=== PATIENT | female | born 1965 | race Caucasian/White ===

== ENCOUNTER 2024-05-27 07:29 | Emergency (ER) | payer SELFPAY ==
[2024-05-27 07:43] VITALS: BP 193/143; PULSE 87; TEMP 37; O2SAT 98; BMI 30.9
--- NOTE | 2024-05-27 07:44 | CTR_ITS ---
PROCEDURE INFORMATION: Exam: CT Abdomen And Pelvis With Contrast Exam date and time: 05/27/2024 8:07 AM Age: 58 years old Clinical indication: Vomiting TECHNIQUE: Imaging protocol: Computed tomography of the abdomen and pelvis with contrast. Radiation optimization: All CT scans at this facility use at least one of these dose optimization techniques: automated exposure control; mA and/or kV adjustment per patient size (includes targeted exams where dose is matched to clinical indication); or iterative reconstruction. Contrast material: OMNI 350; Contrast volume: 100 ml; Contrast route: INTRAVENOUS (IV); COMPARISON: No relevant prior studies available. RADIATION DOSE METRICS: Total DLP (mGy-cm): 964.13 FINDINGS: Lungs: Calcified granuloma at each lung base. Liver: 20 cm borderline hepatomegaly. Gallbladder and biliary ducts: Normal. No calcified stones. No ductal dilation. Pancreas: Normal. No ductal dilation. Spleen: Normal. No splenomegaly. Adrenal glands: Coarse calcifications within the right adrenal. Kidneys and ureters: Normal. No hydronephrosis. Stomach and bowel: Unremarkable. No obstruction. No mucosal thickening. Appendix: No evidence of appendicitis. Intraperitoneal space: Unremarkable. No free air. No significant fluid collection. Vasculature: Unremarkable. No abdominal aortic aneurysm. Lymph nodes: Unremarkable. No enlarged lymph nodes. Urinary bladder: Unremarkable as visualized. Reproductive: Mildly enlarged leiomyomatous uterus. Bones/joints: Unremarkable. No acute fracture. Soft tissues: Small umbilical hernia containing only fat. CT/CT abdomen pelvis w con* [id number] IMPRESSION: No acute abnormality.
--- NOTE | 2024-05-27 07:45 | ED_ITS ---
HPI - Nausea/Vomiting/Diarrhea 2 General: Chief complaint: Nausea/Vomiting/Diarrhea Stated complaint: v/m, abd pain Time Seen by Provider: 05/27/24 07:35 Source: patient Mode of arrival: ambulatory Limitations: no limitations History of Present Illness: Patient presents here with nausea vomiting she states for the last 4 days. She has not been able to tolerate any p.o. but having some abdominal cramping as well. She denies any fevers denies any dysuria she denies any worsening improving factors. Rates her pain currently 2 out of 10. Associated nausea: Yes Associated symtoms: Reports nausea; Denies chest pain, dysuria or headache(s) Review of Systems 2 Const: Denies: fever(s), chills, body aches or change in appetite ENMT: Denies: throat pain or dental pain Card: Denies: chest pain Resp: Denies: dyspnea GI: Reports: abdominal pain, nausea and vomiting; Denies: diarrhea : Denies: dysuria Musc: Denies: neck pain or back pain Skin/Breast: Denies: rash Neuro: Denies: headache(s) Physical Exam 2 Const: COMMON NORMALS: no acute distress, patient oriented x3 and healthy appearing HENMT: COMMON NORMALS: normocephalic and atraumatic HEAD & SCALP: n ormocephalic and atraumatic Neck/C-Spine: COMMON NORMALS: full ROM and supple Chest: COMMONS NORMALS: normal inspection of the chest Resp: COMMON NORMALS: normal respiratory effort Cardio: COMMON NORMALS: regular rate, regular rhythm and No murmurs present (Cardio) RATE: regular rate RHYTHM: regular rhythm GI: COMMON NORMALS: Normal to inspection, nondistended, normoactive bowel sounds present, Soft to palpation, non-tender and no masses PALPATION: Yes Soft to palpation Extremity: COMMON NORMALS: normal to inspection and full ROM Neuro: COMMON NORMALS: patient oriented x3, moves all extremities and no focal motor deficits Psych: COMMON NORMALS: mental status grossly normal, Normal thought process present and cooperative THOUGHT PROCESS: Normal thought process present Skin: COMMON NORMALS: no rashes or lesions noted and no wounds GENERAL SKIN EXAM: no rashes or lesions noted Course 2 Vital Signs: Vital signs: Vital Signs Temperature 98.6 F 05/27/24 07:43 Pulse Rate 87 05/27/24 07:43 Blood Pressure 193/143 05/27/24 07:43 Pulse Oximetry 98 05/27/24 07:43 Oxygen Delivery Me thod Room Air 05/27/24 07:43 MDM - Nausea/Vomiting/Diarrhea Medical Decision Making Patient presents here with nausea vomiting she feels much improved here after Reglan and Benadryl blood work here is normal abdominal exam at discharge benign she stable for discharge follow-up with PCP return if worsening. Medical Records I reviewed the patient's medical records. Lab Data I reviewed the patient's lab results. 05/27/24 07:50 05/27/24 07:50 Radiology Impressions Abdomen/Pelvis CT 05/27/24 07:44 IMPRESSION: No acute abnormality. Laboratory Results WBC 8.50 10^3/uL (3.29-11.43) 05/27/24 07:50 RBC 5.96 10^6/uL (3.85-5.65) H 05/27/24 07:50 Hgb 17.30 g/dL (11.27-16.99) H 05/27/24 07:50 Hct 51.1 % (36-47) H 05/27/24 07:50 MCV 85.7 fl (85-98) 05/27/24 07:50 MCH 29.0 pg (27-33) 05/27/24 07:50 MCHC 33.9 g/dL (30-55) 05/27/24 07:50 RDW 12.2 % (12.1-15.1) 05/27/24 07:50 Plt Count 312 10^3/cmm (157-399) 05/27/24 07:50 MPV 11.2 fL (7.4-10.4) H 05/27/24 07:50 Neut % (Auto) 74.2 % 05/27/24 07:50 Lymph % (Auto) 17.6 % 05/27/24 07:50 [place] % (Auto) 7.3 % 05/27/24 07:50 Eos % (Auto) 0.1 % 05/27/24 07:50 Baso % (Auto) 0.6 % 05/27/24 07:50 Neut # (Auto) 6.30 10^3/uL (1.8-7.7) 05/27/24 07:50 Lymph # (Auto) 1.5 10^3/uL (0.8-4.8) 05/27/24 07:50 [place] # (Auto) 0.6 10^3/uL (0.2-0.9) 05/27/24 07:50 Eos # (Auto) 0.0 10^3/uL (0.0-0.8) 05/27/24 07:50 Baso # (Auto) 0.1 10^3/uL (0.0-0.1) 05/27/24 07:50 Nucleated RBC % (auto) 0 % 05/27/24 07:50 Nucleated RBCs # 0.0 /100WBC 05/27/24 07:50 Sodium 138 mmol/L (136-145) 05/27/24 07:50 Potassium 3.5 mmol/L (3.5-5.1) 05/27/24 07:50 Chloride 101 mmol/L (98-107) 05/27/24 07:50 Carbon Dioxide 20 mmol/L (22-29) L 05/27/24 07:50 Anion Gap 20.5 (5-19) H 05/27/24 07:50 BUN 13 mg/dL (6-20) 05/27/24 07:50 Creatinine 0.7 mg/dL (0.5-0.9) 05/27/24 07:50 GFR Calculation 86.2 mL/min (90-130) L 05/27/24 07:50 Glucose 133 mg/dL (65-115) H 05/27/24 07:50 Calculated Osmolality 288 mOsm/kg (285-295) 05/27/24 07:50 Calcium 9.7 mg/dL (8.5-10.5) 05/27/24 07:50 Total Bilirubin 1.4 mg/dL (0.15-1.2) H 05/27/24 07:50 AST 16 U/L (0-32) 05/27/24 07:50 ALT 21 U/L (0-33) 05/27/24 07:50 Alkaline Phosphatase 98 U/L (35-105) 05/27/24 07:50 Total Protein 8.1 g/dL (6.6-8.7) 05/27/24 07:50 Albumin 4.7 g/dL (3.5-5.2) 05/27/24 07:50 Globulin 3.4 g/dL (1.3-4.6) 05/27/24 07:50 Lipase 28 U/L (13-60) 05/27/24 07:50 Urine Color Yellow (Yellow) 05/27/24 08:49 Urine Appearance Clear (CLEAR) 05/27/24 08:49 Urine pH 6 (5-7) 05/27/24 08:49 Ur Specific [place] 1.010 (1.005-1.030) 05/27/24 08:49 Urine Protein Neg (Negative) 05/27/24 08:49 Urine Glucose (UA) Norm (Normal) 05/27/24 08:49 Urine Ketones 1+ (Negative) H 05/27/24 08:49 Urine Blood Neg (Negative) 05/27/24 08:49 Urine Nitrate Negative (Negative) 05/27/24 08:49 Urine Bilirubin Neg (Negative) 05/27/24 08:49 Urine Urobilinogen Norm mg/dL (Negative) 05/27/24 08:49 Ur Leukocyte Esterase Negative (Negative) 05/27/24 08:49 No radiology studies performed this visit Discharge Plan Discharge Patient Disposition: Home Clinical Impression: Vomiting Condition: Stable Prescriptions: New ondansetron 4 mg tablet,disintegrating 4 mg PO Q6H PRN (Reason: nausea and vomiting) Qty: 14 0RF Discharge Orders: Discharge ED (Routine); Ordered 05/27/24 Ordered By: Anastasiya Benoit Discharge Diet: Advance as tolerated Discharge Activity: Resume usual activity Patient Instructions: Acute Nausea and Vomiting (ED) Coding Level of Care Code ED [facility] for [facility]
[2024-05-27] MEDS: sodium chloride 0.9% 1,000 ML 999 ML IV (07:56)
[2024-05-27] MEDS: diphenhydrAMINE 50 mg/mL SDV 1mL IVP (07:57)
[2024-05-27] MEDS: metoclopramide 5 mg/mL SDV 2 mL 10 MG IVP (07:57)
[2024-05-27 08:01] LABS: Basophils # 0.1 10^3/uL (0.0-0.1); Basophils % 0.6 %; Eosinophils % 0.1 %; Hematocrit 51.1 % (36-47); Lymphocytes # 1.5 10^3/uL (0.8-4.8); Lymphocytes % 17.6 %; Mean Corpuscular HGB Conc 33.9 g/dL (30-55); Mean Corpuscular Volume 85.7 fl (85-98); Mean Platelet Volume 11.2 fL (7.4-10.4); Monocytes # 0.6 10^3/uL (0.2-0.9); Monocytes % 7.3 %; Neutrophils % 74.2 %; Nucleated Red Blood Cells % 0 %; Platelet Count 312 10^3/cmm (157-399); Red Blood Count 5.96 10^6/uL (3.85-5.65); Red Cell Distribution Width 12.2 % (12.1-15.1)
[2024-05-27] MEDS: iohexol 350 mg/mL 500 mL Btl (per mL) IV (08:11)
[2024-05-27 08:24] LABS: Alanine Aminotransferase 21 U/L (0-33); Albumin Level 4.7 g/dL (3.5-5.2); Alkaline Phosphatase 98 U/L (35-105); Anion Gap 20.5 (5-19); Aspartate Amino Transferase 16 U/L (0-32); Blood Urea Nitrogen 13 mg/dL (6-20); Calcium 9.7 mg/dL (8.5-10.5); Carbon Dioxide 20 mmol/L (22-29); Chloride 101 mmol/L (98-107); Creatinine Clr Calc Pharmacy 91.6573; Globulin 3.4 g/dL (1.3-4.6); Glomerular Filtration Rate 86.2 mL/min (90-130); Glucose 133 mg/dL (65-115); Lipase 28 U/L (13-60); Osmolality Calculated 288 mOsm/kg (285-295); Potassium 3.5 mmol/L (3.5-5.1); Sodium 138 mmol/L (136-145); Total Bilirubin 1.4 mg/dL (0.15-1.2); Total Protein 8.1 g/dL (6.6-8.7)
[2024-05-27 08:30] VITALS: BP 176/107; PULSE 66; O2SAT 95
[2024-05-27 08:57] LABS: Add Urine Microscopic? NO; Charge for UA Resulting for Rev
[2024-05-27 09:00] VITALS: BP 184/98; PULSE 59; O2SAT 94
[2024-05-27 09:06] LABS: Glucose Urine UA Norm (Normal); Protein Urine Neg (Negative); Urine Appearance Clear (CLEAR); Urine Color Yellow (Yellow); pH Urine 6 (5-7)
[2024-05-27 09:07] LABS: Bilirubin Urine Neg (Negative); Blood Urine Neg (Negative); Ketones Urine 1+ (Negative); Leukocyte Esterase Urine Negative (Negative); Nitrate Urine Negative (Negative); Urobilinogen Urine Norm (Negative)
[2024-05-27 09:29] VITALS: PULSE 66; O2SAT 94
== END 2024-05-27 09:30 | disposition home or self-care (01) ==
PROVIDERS: Emergency Provider Emergency Medicine
DX: R11.11 Vomiting without nausea (principal)
CPT/HCPCS: 74177; 80053; 81003; 83690; 85025; 96361; 96374; 96375; 99285; J1200; J2765; J7030; Q9967